=== PATIENT | male | born 1980 | race African-American/Black ===

== ENCOUNTER → 2019-03-02 | Outpatient (CLI) | payer BC ==
--- NOTE | 2019-03-03 08:27 | Diagnostic Imaging Report ---
EXAMINATION: MRI of the cervical spine without contrast HISTORY: Chronic neck pain radiating to the right upper system with numbness for last 3 weeks. COMPARISON: None available TECHNIQUE: Sagittal T1, T2, STIR; axial T2, gradient echo. FINDINGS: Curvature: Mild reversal of the cervical at C4-C5 with normal distal cervical lordosis Vertebrae: No evidence of neoplasm, infection, or fracture. Foramen magnum: No mass, Chiari malformation, or basilar invagination. Spinal Cord: Normal size and signal intensity. Soft Tissues: Unremarkable. Degenerative changes: C1-C2: Unremarkable. C2-C3: Unremarkable. C3-C4: Asymmetric right disc osteophyte complex formation, bilateral uncovertebral and facet arthrosis. Moderate right and mild left foraminal stenosis. C4-C5: Disc osteophyte complex formation asymmetric to the left, uncovertebral and facet arthrosis. Moderate right and severe left foraminal stenosis, with compression of the left C5, which may explain the patient's symptoms mild spinal canal stenosis. Mild canal stenosis. C5-C6: Small disc osteophyte complex formation, bilateral uncovertebral and facet arthrosis. Mild right and severe left foraminal stenosis, with posterior impression upon the left C6 root, which is closely associated symptoms mild right foraminal stenosis. Mild canal narrowing. C6-C7: Minimal disc bulge and facet arthrosis without significant stenosis. C7-T1: Unremarkable. IMPRESSION: 1. Severe degenerative foraminal stenosis on the left at C4-C5 and C5-C6, with possible compression of the exiting C5 and C6 nerve roots. 2. Moderate degenerative foraminal stenosis on the right at C3-C4. 3. Mild degenerative spinal canal stenosis at C4-C5 and C5-C6. 4. No spinal cord abnormalities. Signed by: Dr. Ana Paula Dobson M.D. on 03/03/2019 8:24 AM
== END ==
LOC: MRI 14:26
PROVIDERS: ATTEND Specialist
DX: M54.2 Cervicalgia (principal)
CPT/HCPCS: 72141